=== PATIENT | male | born 1975 | race Caucasian/White ===

== ENCOUNTER → 2020-12-07 | Outpatient (CLI) | payer BC, OTHER ==
[~2020-12-07] MED LIST: AMLO10TA4 PO; DOCU100C28 PO; OXYC1TAB19 PO; OXYC5CAP PO; POLY17PO29 PO; TIZA4TAB2 PO
[2020-12-07 09:57] LABS: BASO # 0.1 x10^3/uL (0.0-0.2); BASO % 1 % (0-3); EOS # 0.2 x10^3/uL (0.0-0.7); EOS % 4 % (0-3); HEMATOCRIT 42.5 % (39.0-53.0); HEMOGLOBIN 14.7 g/dL (13.0-17.5); LYMPH # 1.8 x10^3/uL (1.0-4.8); LYMPH % 33 % (24-48); MEAN CORPUSCULAR HEMOGLOBIN 30 pg (25-35); MEAN CORPUSCULAR HGB CONC 35 g/dL (31-37); MEAN CORPUSCULAR VOLUME 88 fL (79-100); MONO # 0.6 x10^3/uL (0.0-1.1); MONO % 12 % (0-9); NEUT # 2.6 x10^3/uL (1.8-7.7); NEUT % 50 % (31-73); PLATELET COUNT 182 x10^3/uL (140-400); RED BLOOD COUNT 4.86 x10^6/uL (4.30-5.70); RED CELL DISTRIBUTION WIDTH 13.2 % (11.5-14.5); WHITE BLOOD COUNT 5.3 x10^3/uL (4.0-11.0)
--- NOTE | 2020-12-07 10:00 | EKG ---
[facility] [address] [place] [address] Test Date: 2020-12-07 Test Time: 09:50:31 Pat Name: JULIUS BRONSON Department: Room: Gender: M Certified Driver Examiner: JESICA : 1975 Requested By: LILA MENJIVAR Order Number: [id number] Reading MD: Measurements Intervals [place] Rate: 88 P: 49 WV: 152 QRS: 52 QRSD: 128 T: 11 QT: 408 QTc: 498 Interpretive Statements SINUS RHYTHM RIGHT BUNDLE BRANCH BLOCK ABNORMAL ECG RI6.02 No previous ECG available for comparison
[2020-12-07 10:24] LABS: ALBUMIN/GLOBULIN RATIO 1.3 (1.0-1.7); CALCIUM 8.6 mg/dL (8.5-10.1); CREATININE 0.9 mg/dL (0.7-1.3); GFR 90.8; TOTAL BILIRUBIN 1.3 mg/dL (0.2-1.0); TOTAL PROTEIN 7.1 g/dL (6.4-8.2)
--- NOTE | 2020-12-07 15:31 | RAD ---
EXAM: PA and Lateral Views of the Chest DATE: 12/07/2020 10:04 AM INDICATION: Reason: PRE-OP LUMBAR SURGERY, HISTORY SMOKER / Spl. Instructions: / History: COMPARISON: No Prior FINDINGS: The heart is not enlarged. Mediastinal and hilar contours are normal. No focal parenchymal airspace opacity. No pleural effusion or pneumothorax. IMPRESSION: 1. No radiographic evidence for acute cardiopulmonary process. Electronically signed by: Rohit Lynn MD (12/07/2020 3:28 PM) [facility]
== END ==
LOC: SURGPAT 09:04
PROVIDERS: ATTEND Neurological Surgery
DX: Z01.812 Encounter for preprocedural laboratory examination (principal); M51.17 Intervertebral disc disorders with radiculopathy, lumbosacral region; Z20.828 Contact with and (suspected) exposure to other viral communicable diseases
CPT/HCPCS: 71046; 80053; 85025; 87641; 93005; U0003; U0005

== ENCOUNTER 2021-01-03 10:07 | Day surgery (SDC) | payer BC ==
[2020-12-07 09:37] VITALS: BP 191/104
[2020-12-29 08:19] VITALS: BP 191/104
--- NOTE | 2021-01-02 17:05 | PREOP HP ---
DATE OF SERVICE: 01/03/2021 PREOPERATIVE HISTORY AND PHYSICAL HISTORY OF PRESENT ILLNESS: The patient is a pleasant 44-year-old man who is having difficulty with low back pain and pain that radiates to his left leg. The pain radiates to his lateral thigh, leg to his foot. The pain is burning and is severe. The problem started in 09/2020 when he fell on the ice and initially had back pain which evolved into back and left leg pain. He says the pain is a constant 4/10 and can reach 10/10 at its worst. He had an epidural steroid injection, which was not helpful. He had physical therapy, which made the problem worse. He is taking Percocet and tizanidine to help control the pain. He has been seeing a chiropractor twice a week. He is using a cane. CURRENT MEDICATIONS: Aleve, Zofran, tizanidine, Percocet, amlodipine. PAST MEDICAL HISTORY: Arthritis, kidney stones, hypertension. FAMILY HISTORY: Alzheimer's disease, cancer, hypertension. PAST SURGICAL HISTORY: Kidney stent in 2011. SOCIAL HISTORY: Employed in a warehouse. Single. Does not smoke. Quit smoking more than 10 years ago. Drinks alcohol 1-2 times per year. ALLERGIES: No known drug allergies. REVIEW OF SYSTEMS: A 12-point review of systems was performed and is noncontributory except that mentioned above. PHYSICAL EXAMINATION: GENERAL: Alert, pleasant, in moderate distress. HEENT: Normocephalic, atraumatic. SKIN: Warm and dry. MUSCULOSKELETAL: Lumbar paraspinal muscle bulk is normal, restricted range of motion of the lumbar spine, [id number] tenderness of the lower lumbar spine with palpation, normal range of motion of the lower extremities bilaterally. EXTREMITIES: No clubbing, cyanosis or edema. NEUROLOGIC: Alert and oriented x 3. Strength is 5/5 in the lower extremities, sensory was intact to light touch in the lower extremities except for decrease in the left lateral leg and dorsum of his left foot, reflexes were present and symmetric in the lower extremities bilaterally, positive straight leg raising on the left, negative straight leg raising on the right, ambulates with a cane. IMAGING: I reviewed a lumbar MRI scan from 10/26/2020. On that study, the principal abnormality is at L5-S1 on the left. There is a foraminal disk herniation combined with facet spurring and end plate ridging resulting in severe left foraminal stenosis and impingement of the exiting left L5 nerve root. ASSESSMENT AND PLAN: The patient has a severe left lumbar radiculopathy with excruciating pain. He has failed to improve with conservative measures. I recommended a transforaminal microdecompression and microdiskectomy at L5-S1 on the left. I spoke with him about the surgery and the risks involved and the expected postoperative course. He understands and would like to go ahead. FRANNY DR: Olena TID: [id number] GEORGE
[~2021-01-03] VITALS: Ht 193 cm; Wt 163.0 kg
[~2021-01-03 10:07] MED LIST changes: +BUPIVACAINE-EPI 0.5%-1:200000 MPF 30 ML VIAL. ONE; +GELATIN SPONGE SIZE 100. ONE; +HYDROmorphone 2 MG/ML VIAL IVP PRN; +KETOROLAC 60 MG/2 ML VIAL. ONE; +MORPHINE SULFATE 2 MG/ML VIAL. IVP PRN; +PROCHLORPERAZINE 10 MG/2 ML VIAL. IVP PRN; +THROMBIN TOPICAL 20,000 UNIT SPRAY.SYRN KIT TP ONE; +ceFAZolin SODIUM 3 GM in IV DEXTROSE 5% 100ML 100 ML IV PRN; +fentaNYL PF VIAL 100 MCG/2 ML VIAL IVP PRN
[2021-01-03] MEDS ORDERED: ROCURONIUM 50 MG/5 ML VIAL. ONE (10:44)
[2021-01-03] MEDS ORDERED: REMIFENTANIL 2 MG VIAL. IV ONE (10:44)
[2021-01-03] MEDS ORDERED: fentaNYL PF VIAL 250 MCG/5 ML VIAL ONE ×2 (10:50→10:51)
[2021-01-03] MEDS: IV RINGERS,LACTATED 1000ML 1,000 ML IV SCH ×2 (10:52→15:42)
[2021-01-03] MEDS ORDERED: PROPOFOL 10 MG/ML (20ML) VIAL. IV ONE (13:11)
[2021-01-03] MEDS ORDERED: PHENYLEPHRINE 10 MG/ML VIAL. ONE (13:11)
[2021-01-03] MEDS ORDERED: ONDANSETRON PF 4 MG/2 ML VIAL. ONE (13:11)
[2021-01-03] MEDS ORDERED: LIDOCAINE 2% PF 5 ML VIAL. ONE (13:11)
[2021-01-03] MEDS ORDERED: GLYCOPYRROLATE 1 MG/5 ML VIAL. ONE (13:11)
[2021-01-03] MEDS ORDERED: DEXAMETHASONE SOD PHOS 4 MG/ML VIAL ONE (13:11)
[2021-01-03] MEDS ORDERED: DESFLURANE > 120 MINUTES IH ONE (13:11)
[2021-01-03] MEDS ORDERED: PROPOFOL 50 ML IV ONE ×2 (13:12→15:27)
[2021-01-03] MEDS ORDERED: REMIFENTANIL 1 MG VIAL. IV ONE (14:05)
[2021-01-03] MEDS ORDERED: NEOSTIGMINE METHYLSULFATE 5 MG/5 ML SYRINGE. ONE (15:23)
--- NOTE | 2021-01-03 15:36 | DISCH ---
DISCHARGE INSTRUCTIONS Condition on Discharge Condition on Discharge: Stable Activity After Discharge Activity Instructions for Disc: Activity as tolerated, Avoid exertion Other activity instructions: no driving for a week Bathing Instructions: Shower-keep dressing dry, No Tub Bath until see Lifting Instructions after Dis: No heavy lifting, No pulling or pushing, Do not lift >10 pounds Diet after Discharge Additional Diet Restrictions: resume home diet Wound Incision Care Wound/Incision Care: Ice to area for comfort Other wound/incision instructi: may remove dressing in 48 huors if dry then may shower, no soaking Contacting the after DC Call your doctor for: Concerns you may have Follow-Up Follow up with: Dr. Menjivar's nurse in 2 weeks [phone] LILA MENJIVAR MD Jan 03, 2021 15:36
[2021-01-03] MEDS ORDERED: oxyCODONE/APAP 7.5/325 1 TAB TABLET PO ONE (16:30)
--- NOTE | 2021-01-03 16:37 | OP ---
DATE OF SURGERY: 01/03/2021 PREOPERATIVE DIAGNOSIS: Foraminal stenosis and foraminal disc herniation L5-S1, left. POSTOPERATIVE DIAGNOSIS: Foraminal stenosis and foraminal disc herniation L5-S1, left. OPERATION PERFORMED: Hemilaminotomy with transforaminal decompression and microdiscectomy L5-S1, left. The operation was done with EMG monitoring, SSEP monitoring, fluoroscopy, microscopic dissection. SPECIMEN: Disc and decompression. SURGEON: Manuel Quach M.D. MELON PACKER: SAMANTHA Allen, assisted with the microdiscectomy and decompression of L5 root as well as the closure. OPERATIVE INDICATIONS: The patient is a pleasant 45-year-old man who developed intractable back and left leg pain which failed conservative measures and had the above-mentioned findings on imaging studies. I recommended microdecompressive surgery. He understood the surgery and the risks, technique and expected postoperative course, and wished to go ahead. DESCRIPTION OF PROCEDURE: Following general endotracheal anesthesia, the patient was positioned prone on the operating room table. We were careful to avoid any pressure points. LIZA hose and AV impulse boots were applied for DVT prophylaxis. The microscope was draped, fluoroscopy was draped and brought into the field. Monitoring was established. Ancef 3 grams was given less than 1 hour prior to initiation of the surgery. Using fluoroscopic guidance, incision was made directly over the L5-S1 interspace. I dissected down through subcutaneous tissue, incised the fascia and placed a [place] microdisk retractor, brought in the microscope. Using the high speed air drill, I burred down a generous hemilaminotomy and then began to work laterally. Because of the patient's body habitus, I was unable to obtain enough lateral exposure with this retraction system, so I switched to a Lara and was able to retract further laterally allowing me to pass through the facet down to the foramen and followed the foramen laterally. The nerve root was markedly compressed by posterior superior bone. I drilled first and then trimmed away. Inferior to the root, there was disc bulging and I did perform discectomy with pituitary rongeurs and as I worked, the root, migrated inferiorly. As I decompressed the region, the root became more and more free and I was easily able to pass a blunt hook out followed by Boogie. The freely mobile. I closed the wound in layers with absorbable suture after obtaining hemostasis and irrigated, removing the retraction system. The skin was closed with 4-0 subcuticular stitch. I felt the surgery went very well. ROBERT/DAVIDA/JORGE LUIS DR: Wild TID: [id number] MTDD
[2021-01-03 16:54] VITALS: BP 169/83
[2021-01-03] MEDS ORDERED: OXYC1TAB19 PO (16:54)
[2021-01-03] MEDS ORDERED: TIZA4TAB2 PO (16:57)
--- NOTE | 2021-01-09 13:13 | PATHOLOGY ---
[facility] Accession Number: [id number] . 01 Material submitted: . vertebral column - LUMBAR DISC AND DECOMPRESSION. Modifiers: L5-S1 . 01 Clinical history: . LUMBAR HERNIATED DISC W/R TRANSFORAMINAL FAR LATERAL DISCECTOMY L5-S1 . 02 Diagnosis: Segments of fibrocartilaginous, fibroadipose, and skeletal muscle tissue and bone, lumbar disc and decompression: - Degenerative changes of fibrocartilaginous tissue. (JPM:taurus; 01/09/2021) S 01/09/2021 0927 Local . 02 Comment: There is no evidence of an acute inflammatory process or malignancy. (JPM:taurus; 01/09/2021) . 02 Electronically signed: . Everardo Lara MD, Pathologist NPI- [id number] . 01 Gross description: . Received in formalin labeled "Heriberto Moore, lumbar disc and decompression" are multiple irregular segments of younger-white bone and soft tissue measuring in aggregate 5.4 x 3.2 x 0.9 cm. Ophthalmic Pathologist sections of the specimen are submitted after decalcification in cassette A1. ([facility]; 01/07/2021) GZA/GZA 01/09/2021 0925 Local . 02 Pathologist provided ICD-10: M51.36 . 02 CPT . 906810, [id number] Specimen Comment: A courtesy copy of this report has been sent to [phone], [phone] Specimen Comment: [id number] Specimen Comment: Report sent to / [facility] Specimen Comment: A duplicate report has been generated due to demographic updates. Performed at: 01 [facility] [address], [place] [id number] MD Malik Mancuso MD Phone: [phone] Performed at: [address] [id number] MD Everardo Lara MD Phone: [phone]
== END 2021-01-03 17:49 | disposition home or self-care (01) ==
LOC: SURG 10:07
PROVIDERS: ATTEND Neurological Surgery
DX: M48.061 Spinal stenosis, lumbar region without neurogenic claudication (principal); M51.17 Intervertebral disc disorders with radiculopathy, lumbosacral region; I10 Essential (primary) hypertension; G47.30 Sleep apnea, unspecified; M19.90 Unspecified osteoarthritis, unspecified site; Z87.891 Personal history of nicotine dependence; Z79.899 Other long term (current) drug therapy; Z98.890 Other specified postprocedural states; Z82.49 Family history of ischemic heart disease and other diseases of the circulatory system
CPT/HCPCS: 63056; 88304; 88311; 97116; 97161; 97530; A4213; A4364; A4556; A4930; A6254; A6258; J1100; J1885; J2370; J2405; J2704; J2710; J3010; J3490; 76000; A4222; A4223